=== PATIENT | female | born 1945 | race Two or more races ===

== ENCOUNTER 2023-01-25 13:11 | Inpatient (IN) | payer OTHER ==
[~2023-01-25] VITALS: Ht 144.8 cm; Wt 580.6 kg
[2023-01-25] MEDS ORDERED: AVAPRO75 MG PO (13:23)
[2023-01-25] MEDS ORDERED: COZAAR50 MG PO (13:23)
[2023-01-25] MEDS ORDERED: METFORMIN HCL500 MG (13:23)
== END 2023-02-09 09:17 | disposition expired | DRG 335 ==
LOC: ER → SEC-K 15:17 → O/R 01-27 12:41 → SEC-K 01-27 12:43 → SURG 01-27 15:47 → ICU 01-28 20:11 → SURG 02-02 20:31 → SURH 02-04 14:54
PROVIDERS: ADMIT Colon & Rectal Surgery; ATTEND Colon & Rectal Surgery
PROC: BW21ZZZ Computerized Tomography (CT Scan) of Abdomen and Pelvis (ICD-10-PCS; 2023-01-26)
PROC: B54DZZZ Ultrasonography of Bilateral Lower Extremity Veins (ICD-10-PCS; 2023-01-26)
PROC: 4A12X4Z Monitoring of Cardiac Electrical Activity, External Approach (ICD-10-PCS; 2023-01-26)
PROC: 0WQF0ZZ Repair Abdominal Wall, Open Approach (ICD-10-PCS; 2023-01-28)
PROC: 0DN80ZZ Release Small Intestine, Open Approach (ICD-10-PCS; 2023-01-28)
PROC: 0DTJ0ZZ Resection of Appendix, Open Approach (ICD-10-PCS; 2023-01-28)
PROC: 0T768DZ Dilation of Right Ureter with Intraluminal Device, Via Natural or Artificial Opening Endoscopic (ICD-10-PCS; 2023-01-28)
PROC: 0DNW0ZZ Release Peritoneum, Open Approach (ICD-10-PCS; principal; 2023-01-28 15:45)
PROC: 3E0F7GC Introduction of Other Therapeutic Substance into Respiratory Tract, Via Natural or Artificial Opening (ICD-10-PCS; 2023-01-29)
PROC: B54NZZZ Ultrasonography of Left Upper Extremity Veins (ICD-10-PCS; 2023-02-01)
PROC: 02HV33Z Insertion of Infusion Device into Superior Vena Cava, Percutaneous Approach (ICD-10-PCS; 2023-02-02)
PROC: 30233N1 Transfusion of Nonautologous Red Blood Cells into Peripheral Vein, Percutaneous Approach (ICD-10-PCS; 2023-02-05)
PROC: BT4JZZZ Ultrasonography of Kidneys and Bladder (ICD-10-PCS; 2023-02-08)
PROC: 0BH18EZ Insertion of Endotracheal Airway into Trachea, Via Natural or Artificial Opening Endoscopic (ICD-10-PCS; 2023-02-09)
DX: K56.52 Intestinal adhesions [bands] with complete obstruction (principal); I21.9 Acute myocardial infarction, unspecified; J95.821 Acute postprocedural respiratory failure; K43.3 Parastomal hernia with obstruction, without gangrene; N13.1 Hydronephrosis with ureteral stricture, not elsewhere classified; K57.30 Diverticulosis of large intestine without perforation or abscess without bleeding; K43.5 Parastomal hernia without obstruction or gangrene; D53.0 Protein deficiency anemia; I10 Essential (primary) hypertension; E78.49 Other hyperlipidemia; I46.8 Cardiac arrest due to other underlying condition; E11.9 Type 2 diabetes mellitus without complications; Z79.4 Long term (current) use of insulin